=== PATIENT | male | born 1995 | race Caucasian/White ===

== ENCOUNTER 2016-08-04 20:50 | Emergency (ER) | payer OTHER ==
[2016-08-04 20:58] VITALS: BP 122/79
--- NOTE | 2016-08-04 22:20 | EDM.PDOC ---
ED HPI GENERAL MEDICAL PROBLEM - General Chief Complaint: Upper Extremity Injury/Pain Stated Complaint: Right hand injury Time Seen by Provider: 08/04/16 21:30 Source of Information: Reports: Patient, RN Notes Reviewed History Limitations: Reports: No Limitations - History of Present Illness INITIAL COMMENTS - FREE TEXT/NARRATIVE: 21 year old male presents to the ED with right hand pain after a crush type injury. His hand was pinched between a hitch and a boat. He reports numbness to 4th and 5th fingers. No difficulty with movement. No additional injury. No open skin wounds. Right Hand Pain Score (Numeric/FACES): 5 - Related Data Allergies Allergy/AdvReac Type Severity Reaction Status Date / Time No Known Allergies Allergy Verified 08/04/16 20:58 Home Meds: Home Meds . [No Known Home Meds] 08/04/16 [History] Past Medical History - Past Health History Medical/Surgical History: Denies Medical/Surgical History Social & Family History - Tobacco Use Smoking Status *Q: Current Every Day Smoker Years of Tobacco use: 3 Packs/Tins Daily: 0.5 - Caffeine Use Caffeine Use: Reports: Coffee, Soda - Recreational Drug Use Recreational Drug Use: No Review of Systems - Review of Systems Review Of Systems: See Below Musculoskeletal: Reports: Hand Pain Skin: Reports: No Symptoms. Denies: Wound Neurological: Reports: Numbness. Denies: Weakness Trauma Exam - Physical Exam Exam: See Below Exam Limited By: No Limitations General Appearance: Reports: Alert, WD/WN, No Apparent Distress Extremities: Other (Bony point tenderness to ulnar aspect of right hand. Small amount of swelling. No obvious deformity. CMS intact.) Neurologic: Reports: No Motor/Sensory Deficits, Alert Course - Vital Signs Last Recorded V/S: Last Vital Signs Temp 99.3 F 08/04/16 20:56 Pulse 65 08/04/16 20:56 Resp 16 08/04/16 20:56 BP 122/79 08/04/16 20:56 Pulse Ox 98 08/04/16 20:56 - Orders/Labs/Meds Orders: Active Orders 24 hr Category Date Time Status Hand Comp Min 3V Rt [CR] Stat Exams 08/04/16 21:42 Ordered - Re-Assessments/Exams Free Text/Narrative Re-Assessment/Exam: Right hand x-ray is negative for fracture. Radiologist interpretation is pending. Departure - Departure Time of Disposition: 22:19 Disposition: Home, Self-Care 01 Condition: good Clinical Impression: Contusion of hand Qualifiers: Encounter type: initial encounter Laterality: right Qualified Code(s): S60.221A - Contusion of right hand, initial encounter - Discharge Information Referrals: PCP,None [Primary Care Provider] - Forms: ED Department Discharge, Return to Work/School Form Additional Instructions: Rest, ice and elevate Tylenol and/or Ibuprofen as needed for pain. Take as directed. Follow-up if not improved in 7-10 days - My Orders Last 24 Hours: My Active Orders 08/04/16 21:42 Hand Comp Min 3V Rt [CR] Stat - Assessment/Plan Last 24 Hours: My Active Orders 08/04/16 21:42 Hand Comp Min 3V Rt [CR] Stat
--- NOTE | 2016-08-05 07:09 | CR ---
Right hand: Four views of the right hand were obtained. Comparison: No previous hand study. Joint spaces are maintained. No fracture, dislocation or other bony abnormality is seen. Small calcification is noted off the PIP joint of the fourth digit which appears to be old. Impression: 1. Small calcification off the PIP joint of the fourth digit which is felt to be old. 2. No additional abnormality is appreciated on right hand exam. Diagnostic code #2
== END 2016-08-04 22:35 | disposition home or self-care (01) ==
LOC: JD.ED 20:50
DX: S60.221A Contusion of right hand, initial encounter (principal); F17.210 Nicotine dependence, cigarettes, uncomplicated; W22.8XXA Striking against or struck by other objects, initial encounter
CPT/HCPCS: 73130-26-RT; 73130-RT; 99282; 99283

== ENCOUNTER 2017-05-11 21:37 | Emergency (ER) | payer SELFPAY ==
[2017-05-11] MEDS ORDERED: Sodium Chloride 0.9% 100 ML ONE ×2 (21:39→22:02)
[2017-05-11 21:46] VITALS: BP 131/87
[2017-05-11] MEDS ORDERED: Sodium Chloride 0.9% 1,000 ML IV ONE (23:00)
--- NOTE | 2017-05-12 00:12 | EDM.PDOC ---
<Dallin Rodas - Last Filed: 05/12/17 06:21> ED HPI GENERAL MEDICAL PROBLEM - General Chief Complaint: General Stated Complaint: INGESTED METHANOL Time Seen by Provider: 05/11/17 22:20 - Related Data Allergies Allergy/AdvReac Type Severity Reaction Status Date / Time No Known Allergies Allergy Verified 08/04/16 20:58 Home Meds: Home Meds . [No Known Home Meds] 08/04/16 [History] Course - Vital Signs Last Recorded V/S: Last Vital Signs Temp 37.1 C 05/11/17 21:41 Pulse 75 05/11/17 21:41 Resp 16 05/11/17 21:41 BP 131/87 05/11/17 21:41 Pulse Ox 98 05/11/17 21:41 - Orders/Labs/Meds Orders: Active Orders 24 hr Category Date Time Status Hemodynamic Monitoring [RC] ASDIRECTED Care 05/12/17 01:11 Active MISC TEST Stat Lab 05/12/17 06:34 Received OXALATE, URINE 24HR Stat Lab 05/11/17 21:48 Ordered Labs: Laboratory Tests 05/11/17 05/11/17 05/11/17 Range/Units 21:44 21:44 21:44 WBC (4.23-9.07) K/mm3 RBC (4.63-6.08) M/mm3 Hgb (13.7-17.5) gm/L Hct (40.1-51.0) % MCV (79.0-92.2) fl MCH (25.7-32.2) pg MCHC (32.2-35.5) g/dl RDW Std Deviation (35.1-43.9) fL Plt Count (163-337) K/mm3 MPV (9.4-12.3) fl Neutrophils % (Manual) (40-60) % Band Neutrophils % (0-10) % Lymphocytes % (Manual) (20-40) % Atypical Lymphs % % Monocytes % (Manual) (2-10) % Eosinophils % (Manual) (0.8-7.0) % Basophils % (Manual) (0.2-1.2) Platelet Estimate Plt Morphology Comment RBC Morph Comment Puncture Site ABG pH (7.35-7.45) ABG pCO2 (35.0-45.0) mmHg ABG pO2 (80.0-100.0) mmHg ABG HCO3 (22.0-26.0) meq/L ABG O2 Saturation (96.0-97.0) % ABG Base Excess (-2-2.0) Tyron Test O2 Delivery Device FiO2 (21.00-100.00) % Sodium (136-145) mEq/L Potassium (3.5-5.1) mEq/L Chloride (98-107) mEq/L Carbon Dioxide (21-32) mEq/L Anion Gap (5-15) BUN (7-18) mg/dL Creatinine (0.7-1.3) mg/dL Est Cr Clr Drug Dosing mL/min Estimated GFR (MDRD) (>60) mL/min BUN/Creatinine Ratio (14-18) Glucose (74-106) mg/dL Serum Osmolality (280-300) mosm/kg Calcium (8.5-10.1) mg/dL Total Bilirubin (0.2-1.0) mg/dL AST (15-37) U/L ALT (16-63) U/L Alkaline Phosphatase (46-116) U/L Total Protein (6.4-8.2) g/dl Albumin (3.4-5.0) g/dl Globulin gm/dL Albumin/Globulin Ratio (1-2) Urine Color Yellow Yellow (Yellow) Urine Appearance Clear Clear (Clear) Urine pH 7.0 7.0 (5.0-8.0) Ur Specific [place] 1.020 1.020 (1.005-1.030) Urine Protein Negative Negative (Negative) Urine Glucose (UA) Negative Negative (Negative) Urine Ketones Negative Negative (Negative) Urine Occult Blood Negative Negative (Negative) Urine Nitrite Negative Negative (Negative) Urine Bilirubin Negative Negative (Negative) Urine Urobilinogen 1.0 1.0 (0.2-1.0) Ur Leukocyte Esterase Negative Negative (Negative) Urine RBC Not seen 0-5 (0-5) /hpf Urine WBC Not seen 0-5 (0-5) /hpf Ur Epithelial Cells Not seen 0-5 (0-5) /hpf Urine Bacteria Few Few (FEW) /hpf Urine Mucus Few Few (FEW) /hpf Urine Opiates Screen Negative (NEGATIVE) Ur Buprenorphine Scrn Negative (NEGATIVE) Ur Oxycodone Screen Negative (NEGATIVE) Urine Methadone Screen Negative (NEGATIVE) Ur Propoxyphene Screen Negative (NEGATIVE) Ur Barbiturates Screen Negative (NEGATIVE) Ur Tricyclics Screen Negative (NEGATIVE) Ur Phencyclidine Scrn Negative (NEGATIVE) Ur Amphetamine Screen Negative (NEGATIVE) U Methamphetamines Scrn Negative (NEGATIVE) U Benzodiazepines Scrn Negative (NEGATIVE) U Cocaine Metab Screen Negative (NEGATIVE) U Marijuana (THC) Screen Negative (NEGATIVE) Ethyl Alcohol (0.00) gm% 05/11/17 05/11/17 05/11/17 Range/Units 21:50 22:05 22:05 WBC 8.88 (4.23-9.07) K/mm3 RBC 5.20 (4.63-6.08) M/mm3 Hgb 15.7 (13.7-17.5) gm/L Hct 44.0 (40.1-51.0) % MCV 84.6 (79.0-92.2) fl MCH 30.2 (25.7-32.2) pg MCHC 35.7 H (32.2-35.5) g/dl RDW Std Deviation 38.9 (35.1-43.9) fL Plt Count 211 (163-337) K/mm3 MPV 10.3 (9.4-12.3) fl Neutrophils % (Manual) 33 L (40-60) % Band Neutrophils % 0 (0-10) % Lymphocytes % (Manual) 63 H (20-40) % Atypical Lymphs % 0 % Monocytes % (Manual) 3 (2-10) % Eosinophils % (Manual) 1 (0.8-7.0) % Basophils % (Manual) 0 L (0.2-1.2) Platelet Estimate Adequate Plt Morphology Comment RBC Morph Comment Normal Puncture Site Rt radial ABG pH 7.41 (7.35-7.45) ABG pCO2 34.9 L (35.0-45.0) mmHg ABG pO2 102.0 H (80.0-100.0) mmHg ABG HCO3 21.7 L (22.0-26.0) meq/L ABG O2 Saturation 99.0 H (96.0-97.0) % ABG Base Excess -1.7 (-2-2.0) Tyron Test Positive O2 Delivery Device Room air FiO2 21.00 (21.00-100.00) % Sodium 143 (136-145) mEq/L Potassium 3.2 L (3.5-5.1) mEq/L Chloride 107 (98-107) mEq/L Carbon Dioxide 26 (21-32) mEq/L Anion Gap 13.2 (5-15) BUN 17 (7-18) mg/dL Creatinine 5.6 H (0.7-1.3) mg/dL Est Cr Clr Drug Dosing 15.14 mL/min Estimated GFR (MDRD) 13 (>60) mL/min BUN/Creatinine Ratio 3.0 L (14-18) Glucose 88 (74-106) mg/dL Serum Osmolality (280-300) mosm/kg Calcium 8.8 (8.5-10.1) mg/dL Total Bilirubin 0.4 (0.2-1.0) mg/dL AST 21 (15-37) U/L ALT 29 (16-63) U/L Alkaline Phosphatase 74 (46-116) U/L Total Protein 6.9 (6.4-8.2) g/dl Albumin 4.1 (3.4-5.0) g/dl Globulin 2.8 gm/dL Albumin/Globulin Ratio 1.5 (1-2) Urine Color (Yellow) Urine Appearance (Clear) Urine pH (5.0-8.0) Ur Specific [place] (1.005-1.030) Urine Protein (Negative) Urine Glucose (UA) (Negative) Urine Ketones (Negative) Urine Occult Blood (Negative) Urine Nitrite (Negative) Urine Bilirubin (Negative) Urine Urobilinogen (0.2-1.0) Ur Leukocyte Esterase (Negative) Urine RBC (0-5) /hpf Urine WBC (0-5) /hpf Ur Epithelial Cells (0-5) /hpf Urine Bacteria (FEW) /hpf Urine Mucus (FEW) /hpf Urine Opiates Screen (NEGATIVE) Ur Buprenorphine Scrn (NEGATIVE) Ur Oxycodone Screen (NEGATIVE) Urine Methadone Screen (NEGATIVE) Ur Propoxyphene Screen (NEGATIVE) Ur Barbiturates Screen (NEGATIVE) Ur Tricyclics Screen (NEGATIVE) Ur Phencyclidine Scrn (NEGATIVE) Ur Amphetamine Screen (NEGATIVE) U Methamphetamines Scrn (NEGATIVE) U Benzodiazepines Scrn (NEGATIVE) U Cocaine Metab Screen (NEGATIVE) U Marijuana (THC) Screen (NEGATIVE) Ethyl Alcohol 0.00 (0.00) gm% 0305/12/17 05/12/17 Range/Units 22:05 05:55 05:55 WBC 7.48 (4.23-9.07) K/mm3 RBC 4.61 L (4.63-6.08) M/mm3 Hgb 13.8 (13.7-17.5) gm/L Hct 39.7 L (40.1-51.0) % MCV 86.1 (79.0-92.2) fl MCH 29.9 (25.7-32.2) pg MCHC 34.8 (32.2-35.5) g/dl RDW Std Deviation 39.0 (35.1-43.9) fL Plt Count 179 (163-337) K/mm3 MPV 10.0 (9.4-12.3) fl Neutrophils % (Manual) 53 (40-60) % Band Neutrophils % 0 (0-10) % Lymphocytes % (Manual) 35 (20-40) % Atypical Lymphs % 0 % Monocytes % (Manual) 8 (2-10) % Eosinophils % (Manual) 4 (0.8-7.0) % Basophils % (Manual) 0 L (0.2-1.2) Platelet Estimate Adequate Plt Morphology Comment Normal RBC Morph Comment Normal Puncture Site ABG pH (7.35-7.45) ABG pCO2 (35.0-45.0) mmHg ABG pO2 (80.0-100.0) mmHg ABG HCO3 (22.0-26.0) meq/L ABG O2 Saturation (96.0-97.0) % ABG Base Excess (-2-2.0) Tyron Test O2 Delivery Device FiO2 (21.00-100.00) % Sodium 142 (136-145) mEq/L Potassium 3.7 (3.5-5.1) mEq/L Chloride 109 H (98-107) mEq/L Carbon Dioxide 24 (21-32) mEq/L Anion Gap 12.7 (5-15) BUN 14 (7-18) mg/dL Creatinine 6.0 H (0.7-1.3) mg/dL Est Cr Clr Drug Dosing 14.13 mL/min Estimated GFR (MDRD) 12 (>60) mL/min BUN/Creatinine Ratio 2.3 L (14-18) Glucose 108 H (74-106) mg/dL Serum Osmolality 299 (280-300) mosm/kg Calcium 8.0 L (8.5-10.1) mg/dL Total Bilirubin 0.6 (0.2-1.0) mg/dL AST 13 L (15-37) U/L ALT 19 (16-63) U/L Alkaline Phosphatase 58 (46-116) U/L Total Protein 5.4 L (6.4-8.2) g/dl Albumin 3.1 L (3.4-5.0) g/dl Globulin 2.3 gm/dL Albumin/Globulin Ratio 1.4 (1-2) Urine Color (Yellow) Urine Appearance (Clear) Urine pH (5.0-8.0) Ur Specific [place] (1.005-1.030) Urine Protein (Negative) Urine Glucose (UA) (Negative) Urine Ketones (Negative) Urine Occult Blood (Negative) Urine Nitrite (Negative) Urine Bilirubin (Negative) Urine Urobilinogen (0.2-1.0) Ur Leukocyte Esterase (Negative) Urine RBC (0-5) /hpf Urine WBC (0-5) /hpf Ur Epithelial Cells (0-5) /hpf Urine Bacteria (FEW) /hpf Urine Mucus (FEW) /hpf Urine Opiates Screen (NEGATIVE) Ur Buprenorphine Scrn (NEGATIVE) Ur Oxycodone Screen (NEGATIVE) Urine Methadone Screen (NEGATIVE) Ur Propoxyphene Screen (NEGATIVE) Ur Barbiturates Screen (NEGATIVE) Ur Tricyclics Screen (NEGATIVE) Ur Phencyclidine Scrn (NEGATIVE) Ur Amphetamine Screen (NEGATIVE) U Methamphetamines Scrn (NEGATIVE) U Benzodiazepines Scrn (NEGATIVE) U Cocaine Metab Screen (NEGATIVE) U Marijuana (THC) Screen (NEGATIVE) Ethyl Alcohol (0.00) gm% Meds: Medications Discontinued Medications Generic Name Dose Route Start Last Admin Trade Name Freq PRN Reason Stop Dose Admin Fomepizole 1 gm/ Sodium 101 mls @ 200 mls/hr 05/12/17 09:00 05/11/17 21:58 Chloride IV 200 mls/hr Q12HR MILLER Administration Sodium Chloride 1,000 mls @ 999 mls/hr 05/11/17 23:00 05/11/17 23:10 Normal Saline IV 05/12/17 00:00 999 mls/hr ONETIME ONE Administration Sodium Chloride 1,000 mls @ 100 mls/hr 05/12/17 01:09 05/12/17 01:25 Normal Saline IV 05/12/17 11:08 100 mls/hr ONETIME ONE Administration Fomepizole 0.52 gm/ Sodium 100.52 mls @ 200 mls/hr 05/12/17 10:00 Chloride IV Q12HR MILLER Sodium Chloride Confirm 05/11/17 21:39 Normal Saline Administered 05/11/17 21:40 Dose 100 mls @ as directed .ROUTE .STK-MED ONE Sodium Chloride Confirm 05/11/17 22:02 Normal Saline Administered 05/11/17 22:03 Dose 100 mls @ as directed .ROUTE .STK-MED ONE - Re-Assessments/Exams Free Text/Narrative Re-Assessment/Exam: 05/12/17 06:21 The initial intention was to keep the patient in the ED until his 10 AM fomepizole dose was given, then transport to [facility], however, an ambulance has become available now, therefore we will transport at this time. He will need to receive his 10 AM fomepizole dose in [place] = 11 AM central time. Departure - Departure Time of Disposition: 01:00 Disposition: DC/Tfer to Acute Hospital 02 Condition: Good Clinical Impression: Methanol poisoning Qualifiers: Encounter type: initial encounter Injury intent: accidental or unintentional Qualified Code(s): T51.1X1A - Toxic effect of methanol, accidental ( unintentional), initial encounter Renal failure Qualifiers: Renal failure chronicity: acute Acute renal failure type: unspecified Qualified Code(s): N17.9 - Acute kidney failure, unspecified - Discharge Information Referrals: PCP,None [Primary Care Provider] - - My Orders Last 24 Hours: My Active Orders 05/11/17 21:48 OXALATE, URINE 24HR Stat 05/12/17 01:11 Hemodynamic Monitoring [RC] ASDIRECTED 05/12/17 06:34 MISC TEST Stat - Assessment/Plan Last 24 Hours: My Active Orders 05/11/17 21:48 OXALATE, URINE 24HR Stat 05/12/17 01:11 Hemodynamic Monitoring [RC] ASDIRECTED 05/12/17 06:34 MISC TEST Stat <Salomón Kang - Last Filed: 05/12/17 07:33> Course - Re-Assessments/Exams Free Text/Narrative Re-Assessment/Exam: 05/12/17 07:[address] Rodas who took over for ORAL Frausto. The patient did good through the night but his creatinine went up from 5.6 to 6. His Na is still good at 142. His potassium is normal at 3.7. His CO2 was good at 24. His anion gap was normal at 12.7. His GFR went down to 12 from 13. His glucose was 108. He renal function is worse. He is in kidney failure. He has not urinated since last night. I feel he needs to go to [place]. I called Dr Conley at [facility] in [place] and he accepted the patient. Departure - Departure Time of Disposition: 07:35 Condition: Serious - My Orders Last 24 Hours: My Active Orders 05/11/17 21:48 OXALATE, URINE 24HR Stat 05/12/17 01:11 Hemodynamic Monitoring [RC] ASDIRECTED 05/12/17 06:34 MISC TEST Stat - Assessment/Plan Last 24 Hours: My Active Orders 05/11/17 21:48 OXALATE, URINE 24HR Stat 05/12/17 01:11 Hemodynamic Monitoring [RC] ASDIRECTED 05/12/17 06:34 MISC TEST Stat <Hannah Driscoll F - Last Filed: 05/12/17 13:23> ED HPI GENERAL MEDICAL PROBLEM - General Source of Information: Reports: Patient History Limitations: Reports: No Limitations - History of Present Illness INITIAL COMMENTS - FREE TEXT/NARRATIVE: 21-year-old male presents for evaluation and treatment of an accidental methanol ingestion. Patient reports around 2100 tonight he drank a swallow of some racing fluid. Patient reports that he put some racing fluid in a Mountain Dew at all. He has been took a swing of the Mountain Dew bottle containing the racing fluid rather than his Mountain Dew. He states he swallowed some and spit some out. Unsure exactly how much he consumed, estimated to be a couple tablespoons. Reports that this was called "cool power." States that is 15% castor oil and 75% methanol. Patient called poison control prior to arrival in the ER. Reports that he was experiencing "migraine "earlier. He states that he is was also feeling dizzy. He states since entering the ER the headache has significantly improved. The dizziness has resolved. No chest pain, nausea, vomiting, abdominal pain or any vision changes. Poison control called the ER at the patient arrived. Recommended checking labs including a CBC, CMP, drug screen, alcohol, serum osmolality, UA and an arterial blood gas. Also recommended giving fomepizole at 15 mg/kg. Onset: Today Past Medical History - Past Health History Medical/Surgical History: Denies Medical/Surgical History Social & Family History - Tobacco Use Smoking Status *Q: Current Every Day Smoker Years of Tobacco use: 10 Packs/Tins Daily: 0.5 - Caffeine Use Caffeine Use: Reports: Coffee, Soda - Recreational Drug Use Recreational Drug Use: No ED ROS GENERAL - Review of Systems Review Of Systems: See Below HEENT: Denies: Vision Change Cardiovascular: Denies: Chest Pain GI/Abdominal: Denies: Abdominal Pain, Nausea, Vomiting Neurological: Reports: Dizziness, Headache ED EXAM, GENERAL - Physical Exam Exam: See Below Exam Limited By: No Limitations General Appearance: Alert, WD/WN, No Apparent Distress Eye Exam: Bilateral Eye: Normal Inspection Ears: Normal External Exam, Normal Canal, Hearing Grossly Normal, Normal TMs Nose: Normal Inspection Throat/Mouth: Normal Inspection, Normal Lips, Normal Oropharynx, Normal Voice, No Airway Compromise Neck: Normal Inspection Respiratory/Chest: No Respiratory Distress, Lungs Clear, Normal Breath Sounds Cardiovascular: Normal Peripheral Pulses, Regular Rate, Rhythm, No Murmur GI/Abdominal: Soft, Non-Tender Neurological: Alert, Oriented, Normal Cognition Psychiatric: Normal Affect, Normal Mood Skin Exam: Warm, Dry, Normal Color Course - Re-Assessments/Exams Free Text/Narrative Re-Assessment/Exam: 05/12/17 00:49 Case discussed with several times with poison control. They feel that his elevated creatinine is 5.6 is likely falsely elevated from the nitromethane that is present in this racing fluid. They do recommend admission until his methanol levels is the acceptable level. Also recommend repeating labs in the morning and given a second dose of the fomepizole at 10 mg/kg in the morning. Case discussed with Dr. Rodriguez, hospice on-call. She refuses to accept patient has been unable to get a methanol level until Monday or Monday per lab. Case discussed with Dr. Sosa, ER physician at [facility]. asked I talk to Dr. Lainez, hospitalist [facility] in [place]. Discussed case with Dr. Lainez. She agrees to accept the patient, however, she is very busy at this time and given that he is a stable patient she asked that we hold him until the morning and consider transfer at that time. Case discussed Onset 1 call. They aren't able to accept the patient is a to cannot get a methanol level. Discussed with Dr. Rodas. Plan will be to hold the patient here in the ER [facility] and recheck labs in the morning. We will attempt to get a methanol level in the morning have this sent by site director. We'll also give him his second dose of fomepizole 10 mg/kg in the morning. Plan will be to transfer him in the morning at a more acceptable hour.
[2017-05-12] MEDS ORDERED: Sodium Chloride 0.9% 1,000 ML IV ONE (01:09)
[2017-05-12] MEDS ORDERED: FOMEPIZOLE IV SCH (10:00)
[2017-05-12] MEDS ORDERED: SODIUM CHLORIDE 0.9% IV SCH (10:00)
== END 2017-05-12 08:00 ==
LOC: JD.ED 21:37
DX: T51.1X1A Toxic effect of methanol, accidental (unintentional), initial encounter (principal); N17.9 Acute kidney failure, unspecified; F17.210 Nicotine dependence, cigarettes, uncomplicated
CPT/HCPCS: 36415; 36600; 80053; 80306; 81001; 82803; 83930; 85025; 99285; G0480; J1451; J7030; J7040

== ENCOUNTER 2017-09-10 19:48 | Emergency (ER) | payer SELFPAY ==
[2017-09-10 20:25] VITALS: BP 136/87
== END 2017-09-10 20:49 | disposition left against medical advice (07) ==
LOC: JD.ED 19:48
DX: Z53.20 Procedure and treatment not carried out because of patient's decision for unspecified reasons (principal)

== ENCOUNTER 2018-06-06 20:57 | Emergency (ER) | payer SELFPAY ==
[2018-06-06 21:14] VITALS: BP 125/74
--- NOTE | 2018-06-06 21:28 | EDM.PDOC ---
ED HPI GENERAL MEDICAL PROBLEM - General Chief Complaint: Upper Extremity Injury/Pain Stated Complaint: RIGHT HAND INJURY Time Seen by Provider: 06/06/18 21:11 Source of Information: Reports: Patient History Limitations: Reports: No Limitations - History of Present Illness INITIAL COMMENTS - FREE TEXT/NARRATIVE: 22 y/o male presents to ER with cc right hand/wrist pain. He states while moving stuff around in the garage a 12 lb receiving ball fell on his hand. He reports the pain increased with ROM. He did not take anything for pain. He states he is right handed. He reports he has injured the same hand in the past. Onset: Today, Sudden Onset Date: 06/06/18 Onset Time: 22:30 Location: Reports: Upper Extremity, Right Quality: Reports: Ache Severity: Mild Improves with: Reports: None Worsens with: Reports: None Associated Symptoms: Reports: No Other Symptoms Right Arm Pain Score (Numeric/FACES): 8 - Related Data Allergies Allergy/AdvReac Type Severity Reaction Status Date / Time No Known Allergies Allergy Verified 06/06/18 21:14 Home Meds: Home Meds . [No Known Home Meds] 08/04/16 [History] Past Medical History - Past Health History Medical/Surgical History: Denies Medical/Surgical History Genitourinary History: Reports: Acute Renal Failure Social & Family History - Caffeine Use Caffeine Use: Reports: Soda Review of Systems - Review of Systems Review Of Systems: See Below Constitutional: Reports: No Symptoms Eyes: Reports: No Symptoms Ears: Reports: No Symptoms Nose: Reports: No Symptoms Mouth/Throat: Reports: No Symptoms Respiratory: Reports: No Symptoms Cardiovascular: Reports: No Symptoms GI/Abdominal: Reports: No Symptoms Genitourinary: Reports: No Symptoms Musculoskeletal: Reports: Hand Pain (right) Skin: Reports: No Symptoms Neurological: Reports: No Symptoms Psychiatric: Reports: No Symptoms ED EXAM, GENERAL - Physical Exam Exam: See Below Exam Limited By: No Limitations General Appearance: Alert, WD/WN, No Apparent Distress Head: Atraumatic, Normocephalic Neck: Normal Inspection, Supple, Non-Tender, Full Range of Motion Back Exam: Normal Inspection, Full Range of Motion Extremities: Normal Inspection, No Pedal Edema, Normal Capillary Refill, Limited Range of Motion, Other (right hand decreased ROM due to pain, no swelling or contusion noted, neurovascularly intact. 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 His preliminary hand x-ray revealed no fracture or dislocation. I will discharge home with roney wrap. Instructed to take Tylenol or Ibuprofen for pain. Instructed to follow up with his PCP. Instructed to return to the ER for any new or acute worsening symptoms. Last Recorded V/S: Last Vital Signs Temp 97.9 F 06/06/18 21:11 Pulse 76 06/06/18 21:11 Resp 20 06/06/18 21:11 BP 125/74 06/06/18 21:11 Pulse Ox 100 06/06/18 21:11 - Orders/Labs/Meds Orders: Active Orders 24 hr Category Date Time Status Hand 2V Rt [CR] Stat Exams 06/06/18 21:28 Taken Departure - Departure Time of Disposition: 22:02 Disposition: Home, Self-Care 01 Condition: Good Clinical Impression: Sprain of hand Qualifiers: Encounter type: initial encounter Laterality: right Qualified Code(s): S63.91XA - Sprain of unspecified part of right wrist and hand, initial encounter - Discharge Information *PRESCRIPTION DRUG MONITORING PROGRAM REVIEWED*: Not Applicable *COPY OF PRESCRIPTION DRUG MONITORING REPORT IN PATIENT SHAINA: Not Applicable Instructions: Cryotherapy, [id number], Wrist Sprain, Adult Referrals: PCP,None [Primary Care Provider] - Forms: ED Department Discharge Additional Instructions: Your x-ray revealed no fracture or dislocation. You can use ice for 20 minutes at a time. Take Ibuprofen or Tylenol for the pain. Follow up with your PCP. Return to the ER for any new or acute worsening symptoms. - My Orders Last 24 Hours: My Active Orders 06/06/18 21:28 Hand 2V Rt [CR] Stat - Assessment/Plan Last 24 Hours: My Active Orders 06/06/18 21:28 Hand 2V Rt [CR] Stat
--- NOTE | 2018-06-07 06:55 | CR ---
Right hand: Two views of the right hand were obtained. Comparison: Prior right hand study of 08/04/16. Joint spaces are maintained. No fracture, dislocation or other bony abnormality is identified. Minimal calcification is noted off the PIP joint of the fourth digit which is stable and incidental. Impression: 1. Small soft tissue calcification as noted above believed to be incidental. 2. Two-view right hand exam is otherwise unremarkable. Diagnostic code #2
== END 2018-06-06 22:10 | disposition home or self-care (01) ==
LOC: JD.ED 20:57
DX: S63.91XA Sprain of unspecified part of right wrist and hand, initial encounter (principal); W20.8XXA Other cause of strike by thrown, projected or falling object, initial encounter
CPT/HCPCS: 73120-26-RT; 73120-RT; 99283-25

== ENCOUNTER 2021-07-25 16:44 | Emergency (ER) | payer BC ==
[2021-07-25 17:01] VITALS: BP 123/81; PULSE 85
[2021-07-25] MEDS ORDERED: Lidocaine 1% 10 ML MDV INJECT ONE (17:13)
[2021-07-25] MEDS ORDERED: Diphtheria,Pertussis(Acell),Tetanus Vaccine 0.5 ML Syringe IM ONE (17:13)
== END 2021-07-25 18:06 | disposition home or self-care (01) ==
LOC: JD.ED 16:44
DX: S61.214A Laceration without foreign body of right ring finger without damage to nail, initial encounter (principal); Z72.0 Tobacco use; Z86.16 Personal history of COVID-19; Z23 Encounter for immunization; W26.8XXA Contact with other sharp object(s), not elsewhere classified, initial encounter; Y99.0 Civilian activity done for income or pay
CPT/HCPCS: 12001; 90471; 90715; 99282-25

== ENCOUNTER 2022-12-07 00:29 | Emergency (ER) | payer BC ==
[2022-12-07 00:48] VITALS: BP 135/91; PULSE 71
[2022-12-07 01:33] LABS: BARBITURATE SCREEN,URINE NEGATIVE (CUTOFF=200); BENZODIAZEPINES SCREEN,URINE NEGATIVE (CUTOFF=150); BUPRENORPHINE SCREEN,URINE NEGATIVE (CUTOFF=10); METHADONE SCREEN, URINE NEGATIVE (CUT0FF=200); METHAMPHETAMINES SCREEN, URINE NEGATIVE (CUTOFF=500); OXYCODONE SCREEN,URINE NEGATIVE (CUT0FF=100); PROPOXYPHENE SCREEN,URINE NEGATIVE (CUTOFF=300); THC SCREEN,URINE 20 NG/ML NEGATIVE (CUTOFF=50)
[2022-12-07 01:37] LABS: AMPHETAMINES SCREEN, URINE NEGATIVE (CUTOFF=500)
[2022-12-07 01:45] LABS: BASOPHILS PERCENT AUTO 0.3 % (0.0-1.0); EOSINOPHILS ABSOLUTE AUTO 0.1 K/mm3 (0.0-0.4); EOSINOPHILS PERCENT AUTO 1.3 % (0.0-6.0); HEMATOCRIT 44.5 % (42.0-52.0); HEMOGLOBIN 15.7 gm/dl (14.0-18.0); IMMATURE GRAN ABSOLUTE AUTO 0.03 K/mm3 (0.00-0.05); IMMATURE GRAN PERCENT AUTO 0.3 % (0.0-0.4); LYMPHOCYTES ABSOLUTE AUTO 1.8 K/mm3 (1.0-4.8); LYMPHOCYTES PERCENT AUTO 19.1 % (24.0-44.0); MEAN CORPUSCULAR HEMOGLOBIN 30.1 pg (28.0-32.0); MEAN CORPUSCULAR HGB CONC 35.3 g/dl (32.0-36.0); MEAN CORPUSCULAR VOLUME 85.4 fl (83.0-99.0); MEAN PLATELET VOLUME 9.9 fl (9.4-12.4); MONOCYTES ABSOLUTE AUTO 0.6 K/mm3 (0.0-0.8); NEUTROPHILS ABSOLUTE AUTO 6.8 K/mm3 (1.8-7.7); PLATELET COUNT,PLT 193 K/mm3 (150-400); RED BLOOD CELL COUNT 5.21 M/mm3 (4.52-5.90); WHITE BLOOD CELL COUNT,WBC 9.27 K/mm3 (3.9-11.3)
[2022-12-07 02:27] LABS: A/G RATIO 1.5 (1-2); ALBUMIN 4.2 g/dl (3.4-5.0); ANION GAP 11.5 (5-15); BILIRUBIN TOTAL 0.4 mg/dL (0.2-1.0); CALCIUM 9.1 mg/dL (8.5-10.1); CREATININE 1.1 mg/dL (0.7-1.3); EST CRCL DRUG DOSING (CG) 75.78 mL/min; POTASSIUM,K 3.5 mEq/L (3.5-5.1); PROTEIN TOTAL,TP 7.1 g/dl (6.4-8.2)
== END 2022-12-07 09:50 ==
LOC: JD.ED 00:29
DX: R45.851 Suicidal ideations (principal); Z86.16 Personal history of COVID-19
CPT/HCPCS: 36415; 80053; 80143; 80179; 80306; 80307; 85025; 99285; U0002